=== PATIENT | female | born 1980 | race Caucasian/White ===

== ENCOUNTER → 2018-11-18 | Outpatient (CLI) | payer OTHER ==
[2018-11-18 07:59] LABS: BILIRUBIN,URINE NEGATIVE (NEG); CLARITY,URINE CLEAR; COLOR,URINE YELLOW; NITRITE,URINE NEGATIVE (NEG); PROTEIN,URINE NEGATIVE (NEG-TRACE)
[2018-11-18 08:09] LABS: HEMATOCRIT 40.4 % (36.0-47.0); HEMOGLOBIN 13.4 g/dL (12.0-15.5); RED BLOOD COUNT 4.56 x10^6/uL (3.50-5.40); RED CELL DISTRIBUTION WIDTH 13.9 % (11.5-14.5); WHITE BLOOD COUNT 7.1 x10^3/uL (4.0-11.0)
[2018-11-18 08:16] LABS: CALCIUM 9.5 mg/dL (8.5-10.1); CREATININE 0.7 mg/dL (0.6-1.0); GFR 93.6; POTASSIUM 4.1 mmol/L (3.5-5.1)
[2018-11-18 08:30] LABS: BACTERIA,URINE FEW /HPF (0-FEW); SQUAMOUS EPITHELIAL CELL,UR FEW /LPF
== END | disposition home or self-care (01) ==
LOC: LAB 07:27
PROVIDERS: ATTEND Family Medicine
DX: I10 Essential (primary) hypertension (principal); E66.9 Obesity, unspecified
CPT/HCPCS: 36415; 80048; 80061; 81001; 84443; 85027

== ENCOUNTER → 2020-07-05 | Outpatient (CLI) | payer OTHER ==
--- NOTE | 2020-07-08 23:11 | PATHOLOGY ---
[facility] Accession Number: [id number] . 01 Material submitted: . cervix - CERVICAL POLYP . 01 Clinician provided ICD-10: N84.1 Z01.411 . 02 Diagnosis: "Cervical polyp", excisional biopsy: - Endocervical polyp; no dysplasia seen. ([facility]ard[facility] night; 07/08/2020) [facility] 07/08/2020 1243 Local . 02 Electronically signed: . Annabelle Natarajan MD, Pathologist NPI- [id number] . 01 Gross description: . The specimen is received in formalin, labeled "Adams Eduardo". No source is listed on the container. The source is listed on the requisition as, "cervical polyp". Received is a segment of friable light jaimes soft tissue measuring 0.7 cm in maximum dimensions. The specimen is filtered and entirely submitted in cassette A1. ([facility]; 07/07/2020) QA/[facility] 07/07/2020 1753 Local . 02 Pathologist provided ICD-10: N84.1 . 02 CPT . 062286 Specimen Comment: A courtesy copy of this report has been sent to [phone], [phone] Specimen Comment: [id number] Specimen Comment: Report sent to DR BUTLER Performed at: 01 [facility] [address], [place], [place] [id number] MD Adam Christopher MD Phone: [phone] Performed at: 02 [facility] [address], [place] [id number] MD Tao Yuan MD Phone: [phone]
== END ==
LOC: SPEC 16:25
PROVIDERS: ATTEND Obstetrics & Gynecology
DX: Z01.411 Encounter for gynecological examination (general) (routine) with abnormal findings (principal); N84.1 Polyp of cervix uteri
CPT/HCPCS: 87623; 88175; 88305

== ENCOUNTER → 2020-07-22 | Outpatient (CLI) | payer OTHER ==
--- NOTE | 2020-07-26 12:42 | RAD ---
DATE: 07/22/2020 2:39 PM EXAM: MAMMO YEIMI SCREENING BILATERAL HISTORY: Screening COMPARISON: None. This will serve as a baseline. Bilateral CC and MLO views of the breasts were performed. Bilateral breast tomosynthesis was performed in CC and MLO projections. This study was interpreted with the benefit of Computerized Aided Detection (CAD). FINDINGS: Breast Density: SCATTERED The breast parenchyma shows scattered fibroglandular densities. Breast parenchyma level B Multiple bilateral circumscribed oval isodense masses, largest of which have central coarse calcifications, are present, compatible with hyalinizing fibroadenomas. No suspicious masses, microcalcifications or architectural distortion is present to suggest malignancy in either breast. The visualized axillae are unremarkable. IMPRESSION: No mammographic evidence of malignancy. BI-RADS CATEGORY: 2 BENIGN FINDING(S) RECOMMENDED FOLLOW-UP: 12M 12 MONTH FOLLOW-UP Annual screening mammography is recommended, unless clinically indicated sooner based on symptoms or change in physical exam. PQRS compliance statement: Patient information was entered into a reminder system with a target due date for the next mammogram. Mammography is a sensitive method for finding small breast cancers, but it does not detect them all and is not a substitute for careful clinical examination. A negative mammogram does not negate a clinically suspicious finding and should not result in delay in biopsying a clinically suspicious abnormality. "Our facility is accredited by the [employer] Mammography Program."
== END ==
LOC: MAMMO 14:31
PROVIDERS: ATTEND Obstetrics & Gynecology
DX: Z12.31 Encounter for screening mammogram for malignant neoplasm of breast (principal); N63.10 Unspecified lump in the right breast, unspecified quadrant; N63.20 Unspecified lump in the left breast, unspecified quadrant
CPT/HCPCS: 77063; 77067

== ENCOUNTER → 2021-03-25 | Outpatient (CLI) | payer OTHER ==
[2021-03-25 08:04] LABS: BASO % 0 % (0-3); EOS # 0.2 x10^3/uL (0.0-0.7); EOS % 3 % (0-3); HEMATOCRIT 37.6 % (36.0-47.0); HEMOGLOBIN 12.4 g/dL (12.0-15.5); LYMPH # 2.1 x10^3/uL (1.0-4.8); LYMPH % 35 % (24-48); MEAN CORPUSCULAR HEMOGLOBIN 28 pg (25-35); MEAN CORPUSCULAR HGB CONC 33 g/dL (31-37); MEAN CORPUSCULAR VOLUME 84 fL (79-100); MONO # 0.5 x10^3/uL (0.0-1.1); MONO % 9 % (0-9); NEUT # 3.2 x10^3/uL (1.8-7.7); NEUT % 54 % (31-73); PLATELET COUNT 360 x10^3/uL (140-400); RED BLOOD COUNT 4.47 x10^6/uL (3.50-5.40); RED CELL DISTRIBUTION WIDTH 14.9 % (11.5-14.5); WHITE BLOOD COUNT 5.9 x10^3/uL (4.0-11.0)
[2021-03-25 08:26] LABS: ALBUMIN 3.2 g/dL (3.4-5.0); ALBUMIN/GLOBULIN RATIO 0.8 (1.0-1.7); CALCIUM 9.3 mg/dL (8.5-10.1); CREATININE 0.7 mg/dL (0.6-1.0); GFR 92.2; POTASSIUM 4.9 mmol/L (3.5-5.1); TOTAL BILIRUBIN 0.2 mg/dL (0.2-1.0); TOTAL PROTEIN 7.4 g/dL (6.4-8.2)
[2021-03-25 08:27] LABS: CHOLESTEROL/HDL RATIO 4.3
== END ==
LOC: LAB 06:43
PROVIDERS: ATTEND Family Medicine
DX: I10 Essential (primary) hypertension (principal); E66.9 Obesity, unspecified; E78.00 Pure hypercholesterolemia, unspecified
CPT/HCPCS: 36415; 80053; 80061; 84443; 85025